=== PATIENT | male | born 1970 | race Two or more races ===

== ENCOUNTER 2021-12-02 07:24 | Emergency (ER) | payer OTHER ==
[~2021-12-02] VITALS: Ht 170.2 cm; Wt 99.8 kg
--- NOTE | 2021-12-02 07:41 | NUR ---
CALLED TO TRIAGE,NO ANSWER
[2021-12-02] MEDS ORDERED: CEFTRIAXONE 1GM BAG (ER ONLY) 50 ML IV ONE (08:23)
[2021-12-02] MEDS ORDERED: ACETAMINOPHEN ES 500 MG TABLET ONE (08:24)
[2021-12-02] MEDS: ACETAMINOPHEN 325 MG TABLET PO ONE (08:27)
[2021-12-02] MEDS: CEFTRIAXONE 1GM BAG (ER ONLY) 1 GM/50 ML PIGGYBACK IV ONE (08:28)
--- NOTE | 2021-12-02 08:31 | NUR ---
seen by Dr. Block with septoc work up orders - tylenol PO given Labs drawn and sent to labs (BC x 2, with lactic acid)
[2021-12-02 08:32] LABS: BASOPHILS % (AUTO) 0.2 % (0.0-2.0); EOSINOPHILS % (AUTO) 0.1 % (0.0-6.0); HEMATOCRIT 43 % (39-51); HEMOGLOBIN 14.2 g/dL (13.5-17.5); LYMPHOCYTES # (AUTO) 0.5 K/uL (0.8-4.8); LYMPHOCYTES % (AUTO) 2.9 % (20.0-44.0); MEAN CORPUSCULAR HGB CONC 33 g/dl (31.0-36.0); MEAN CORPUSCULAR VOLUME 89 fL (80-96); MONOCYTES # (AUTO) 1.1 K/uL (0.1-1.30); MONOCYTES % (AUTO) 6.7 % (2.0-12.0); NEUTROPHILS # (AUTO) 14.5 K/uL (1.8-8.9); NEUTROPHILS % (AUTO) 90.1 % (43.0-81.0); PLATELET COUNT (AUTO) 177 K/uL (150-450); RED BLOOD CELL COUNT(AUTO) 4.81 MIL/uL (4.5-6.0)
[2021-12-02] MEDS: VANCOMYCIN 1 GM in IV D5W 250 ML IV ONE (09:00)
[2021-12-02 09:23] LABS: ALANINE AMINOTRANSFERASE 21 U/L (12-78); ALBUMIN 3.5 g/dL (3.4-5.0); ALKALINE PHOSPHATASE 89 U/L (46-116); ASPARTATE AMINOTRANSFERASE 16 U/L (15-37); BILIRUBIN,DIRECT 0.4 mg/dL (0.0-0.2); BILIRUBIN,TOTAL 1.3 mg/dL (0.2-1.0); CHLORIDE 98 mmol/L (98-107); GLUCOSE 106 mg/dL (74-106); POTASSIUM 4.2 mmol/L (3.5-5.1); SODIUM SERUM 134 mmol/L (136-145); TOTAL PROTEIN, SERUM 7.1 g/dL (6.4-8.2); UREA NITROGEN, BLOOD 19 mg/dL (7-18)
--- NOTE | 2021-12-02 09:48 | NUR ---
MARLYN MORALES SISTER ([phone])
--- NOTE | 2021-12-02 10:46 | NUR ---
COVID SWAB DONE AND SENT TO LAB
[2021-12-02 11:27] LABS: CALCIUM, SERUM 8.2 mg/dL (8.5-10.1); CARBON DIOXIDE 21 mmol/L (21-32)
--- NOTE | 2021-12-02 11:39 | NUR ---
URINE SPECIMEN SENT TO LAB
[2021-12-02 11:58] LABS: BILIRUBIN,URINE NEGATIVE (NEGATIVE); COLOR,URINE YELLOW (YELLOW); LEUKOCYTE ESTERASE ,URINE MODERATE (NEGATIVE); NITRITE, URINE POSITIVE (NEGATIVE); PROTEIN,URINE 30 mg/dl (NEGATIVE); UGLUCOSE NEGATIVE (NEGATIVE); UROBILINOGEN,URINE 0.2 EU/dL (0.2)
--- NOTE | 2021-12-02 12:24 | NUR ---
CAME FROM [facility] DEPT
[2021-12-02 13:13] LABS: BACTERIA,URINE Few /HPF (None Seen); RBC,URINE 51-80 /HPF (0-2); WBC,URINE 51-80 /HPF (0-3)
--- NOTE | 2021-12-02 13:41 | NUR ---
ACCEPTED AT [facility] PER [facility] FROM [facility]. UNDER [facility]. SARGENT [facility] [id number] [phone] FOR REPORT.
--- NOTE | 2021-12-02 13:52 | NUR ---
[facility] TRANSPORT ETA 1700 VIA [facility].
--- NOTE | 2021-12-02 14:48 | NUR ---
CALLED [facility]. REPORT GIVEN TO
--- NOTE | 2021-12-02 15:10 | NUR ---
TRANSPORT ETA 1702
--- NOTE | 2021-12-02 16:40 | NUR ---
PATIENT PICKED UP BY [facility] IN STABLE CONDITION. PATIENT WILL BE TRANSFERRED TO [facility] WITH ALL THE CLINICALS AND CD PROVIDED.
[2021-12-02 16:41] VITALS: BP 158/70
== END 2021-12-02 16:44 | disposition short-term general hospital (02) ==
LOC: ER 07:37
DX: N12 Tubulo-interstitial nephritis, not specified as acute or chronic (principal); N39.0 Urinary tract infection, site not specified; R50.9 Fever, unspecified; R51.9 Headache, unspecified; Z20.822 Contact with and (suspected) exposure to COVID-19; Z98.890 Other specified postprocedural states; H53.50 Unspecified color vision deficiencies
CPT/HCPCS: 36415; 70450; 71045; 74176; 80048; 80076; 81001; 83605; 84145; 84484; 85025; 85730; 87040 ×2; 87077; 87086; 87186; 87426; 93005; 96365; 96367; 99285; C9803; J0696; J3370; J7060